=== PATIENT | male | born 1970 | race Caucasian/White ===

== ENCOUNTER → 2023-04-10 08:53 | Outpatient (BNVA) | payer BC, SELFPAY | PROVIDERS: Visit Provider Student in an Organized Health Care Education/Training Program | DX: M75.42 Impingement syndrome of left shoulder; M75.41 Impingement syndrome of right shoulder | CPT/HCPCS: 73030 ==

== ENCOUNTER → 2023-09-18 14:24 | Outpatient (BNVA) | payer BC, SELFPAY | PROVIDERS: Visit Provider Physician Assistant | DX: M23.302 Other meniscus derangements, unspecified lateral meniscus, unspecified knee; M17.10 Unilateral primary osteoarthritis, unspecified knee | CPT/HCPCS: 73560; 73565 ==